=== PATIENT | female | born 1960 | race African-American/Black ===

== ENCOUNTER 2023-12-03 15:10 | Emergency (ER) | payer MEDICAID, OTHER ==
[~2023-12-03] VITALS: Ht 165.1 cm; Wt 80.0 kg
[2023-12-03 15:14] VITALS: O2SAT 99
[2023-12-03] MEDS: METOCLOPRAMIDE HCL 10MG/2ML VIAL IV ONE (18:18)
[2023-12-03] MEDS: ACETAMINOPHEN 325MG TABLET PO ONE (18:18)
[2023-12-03] MEDS: LACTATED RINGERS 1,000 ML IV SCH (18:18)
[2023-12-03 20:08] LABS: BASOPHILS % 1.1 % (0.0-2.0); DIFFERENTIAL COMMENT 0; EOSINOPHILS % 2.8 % (0.0-5.0); HEMATOCRIT. 26.8 % (36.0-48.0); HEMOGLOBIN. 8.1 g/dL (12.0-16.0); LYMPHOCYTES % 19.6 % (20.0-50.0); MEAN CORPUSCULAR HEMOGLOBIN 22.4 pg (28.0-32.0); MEAN CORPUSCULAR HGB CONC 30.1 g/dL (31.0-37.0); MEAN CORPUSCULAR VOLUME 74.4 fL (81.0-99.0); MEAN PLATELET VOLUME 8.3 fl (7.4-10.4); MONOCYTES % 7.7 % (2.0-8.0); NEUTROPHILS % 68.8 % (40.0-76.0); PLATELET 291 x1000/uL (130-400); RED CELL DISTRIBUTION WIDTH 19.4 % (11.6-14.6); WHITE BLOOD COUNT 5.7 x1000/uL (4.5-11.0)
[2023-12-03 20:13] LABS: CHLORIDE 104 mEq/L (98-107); POTASSIUM 3.5 mEq/L (3.5-5.1); SODIUM 138 mEq/L (136-145)
[2023-12-03 20:14] LABS: CALCIUM 9.2 mg/dL (8.7-10.4); CARBON DIOXIDE 24 mEq/L (21-32)
[2023-12-03 20:19] LABS: CREATININE 0.9 mg/dL (0.6-1.0); GLUCOSE 128 mg/dL (70-105); UREA NITROGEN BLOOD 12 mg/dL (9-23)
[2023-12-03 20:20] LABS: ALANINE AMINOTRANSFERASE 9 IU/L (10-49)
[2023-12-03 20:21] LABS: ALBUMIN 4.1 g/dL (3.2-4.8); ASPARTATE AMINOTRANSFERASE 16 IU/L (<34); BILIRUBIN TOTAL 0.2 mg/dL (0.1-1.0); PROTEIN TOTAL 7.4 g/dL (6.0-8.3)
[2023-12-03] MEDS: KETOROLAC 15MG/ML VIAL IV ONE (20:50)
[2023-12-03 21:09] VITALS: BP 138/87; PULSE 85; RESP 18; TEMP 98.4
== END 2023-12-03 21:18 | disposition home or self-care (01) ==
LOC: ER 15:10
DX: R51.9 Headache, unspecified (principal); I10 Essential (primary) hypertension; F12.10 Cannabis abuse, uncomplicated
CPT/HCPCS: 80053; 85025; 36415; 70450; 96361; 96374; 96375; 99285; J1885; J2765; Z7610